=== PATIENT | female | born 1995 | race Two or more races ===

== ENCOUNTER 2024-07-12 23:42 | Emergency (ER) | payer OTHER ==
[~2024-07-12] VITALS: Ht 149.9 cm; Wt 47.2 kg
[2024-07-13] MEDS ORDERED: PRENATE ELITE1 EAC2 (00:14)
[2024-07-13] MEDS ORDERED: 0.9 % SODIUM CHLORIDE 1,000 ML IV STA (02:39)
[2024-07-13 04:31] LABS: BASO % 0.4 % (0.1-1.2); EOS # 0.14 (0.04-0.54); EOS % 1.5 % (0.7-7.0); HEMATOCRIT 35.9 % (34.1-44.9); HEMOGLOBIN 12.1 g/dL (11.2-15.7); LYMPH # 3.28 (1.18-3.74); LYMPH % 34.3 % (19.3-53.1); MEAN CORPUSCULAR HEMOGLOBIN 28.9 pg (25.6-32.2); MONO # 0.91 (0.24-0.82); MONO % 9.5 % (4.7-12.5); NEUT # 5.16 (1.56-6.13); PLATELET COUNT 264 K/uL (163-369); RED BLOOD COUNT 4.19 M/uL (3.93-5.22); RED CELL DISTRIBUTION WIDTH 11.9 % (11.6-14.4)
[2024-07-13 04:32] LABS: INR < 0.93; PARTIAL THROMBOPLASTIN TIME 25.7 SECONDS (22.0-34.0); PROTHROMBIN TIME 10.2 SECONDS (9.0-11.5)
[2024-07-13 05:00] LABS: ALBUMIN 3.6 gm/dL (3.4-5.0); BILIRUBIN TOTAL 0.18 mg/dL (0.3-1.2); CALCIUM 9.1 mg/dL (8.5-10.1); CREATININE SERUM 0.49 mg/dL (0.55-1.02); GFR 148.29; GLOBULINA 3.4 G/DL (2.4-3.5); POTASSIUM 3.81 mEq/L (3.5-5.1)
== END 2024-07-13 06:10 | disposition home or self-care (01) ==
LOC: ER 23:42
DX: O20.0 Threatened abortion (principal)

== ENCOUNTER 2024-07-23 09:17 | Inpatient (IN) | payer OTHER ==
[~2024-07-23] VITALS: Ht 149.9 cm; Wt 48.5 kg
[~2024-07-23 09:17] MED LIST: PRENATE ELITE1 EAC2
--- NOTE | 2024-07-23 10:00 | NUR ---
PTE ALERTA Y ORIENTADA X3. EMBARAZADA DE 11 SEMANAS DE GESTACION, LA MISMA VERBALIZA QUE PRESENTA POCO SANGRADO DESDE EL SENAIT. RITTER GINECOLOGO ES CYNDI CELSA. SE LE PAULO S/V Y SE UBICA.
[2024-07-23] MEDS ORDERED: 0.9 % SODIUM CHLORIDE 1,000 ML IV SCH (11:00)
--- NOTE | 2024-07-23 11:09 | NUR ---
PTE EVALUADA POR EL DR, DENNIS QUIEN ORDENA TRATAMIENTO LA CUAL SE EJECUTA SE SE MANTIENE BAJO OBSERVACION.EN ESPERA DE MEDICO CONSULTO.
[2024-07-23 11:18] LABS: BASO % 0.4 % (0.1-1.2); EOS # 0.08 (0.04-0.54); EOS % 1.1 % (0.7-7.0); HEMATOCRIT 40.7 % (34.1-44.9); HEMOGLOBIN 13.5 g/dL (11.2-15.7); LYMPH # 2.36 (1.18-3.74); LYMPH % 31.8 % (19.3-53.1); MEAN CORPUSCULAR HEMOGLOBIN 28.4 pg (25.6-32.2); MONO # 0.72 (0.24-0.82); MONO % 9.7 % (4.7-12.5); NEUT # 4.21 (1.56-6.13); NEUT % 56.7 % (34.0-71.1); PLATELET COUNT 263 K/uL (163-369); RED BLOOD COUNT 4.75 M/uL (3.93-5.22); RED CELL DISTRIBUTION WIDTH 11.9 % (11.6-14.4)
[2024-07-23 11:57] LABS: INR 0.97; PARTIAL THROMBOPLASTIN TIME 25.7 SECONDS (22.0-34.0); PROTHROMBIN TIME 10.6 SECONDS (9.0-11.5)
[2024-07-23 12:05] LABS: CALCIUM 9.8 mg/dL (8.5-10.1); CREATININE SERUM 0.47 mg/dL (0.55-1.02); GFR 155.59; POTASSIUM 4.05 mEq/L (3.5-5.1)
[2024-07-23] MEDS ORDERED: RINGERS SOLUTION,LACTATED 1,000 ML IV SCH (12:45)
[2024-07-23] MEDS ORDERED: POVIDONE-IODINE 118 ML BOTT TOP ONE (22:15)
[2024-07-24] MEDS ORDERED: MORPHINE SULFATE 4 MG/ML VIAL IV SCH (01:00)
[2024-07-24 04:53] VITALS: BP 104/69; O2SAT 100
== END 2024-07-24 00:25 | disposition home or self-care (01) | DRG 770 ==
LOC: ER 09:17 → O/R 16:02
PROVIDERS: Emergency Medicine; ADMIT Obstetrics & Gynecology; ATTEND Obstetrics & Gynecology
PROC: 10D17ZZ Extraction of Products of Conception, Retained, Via Natural or Artificial Opening (ICD-10-PCS; principal; 2024-07-23 22:00)
DX: O02.1 Missed abortion (principal)